=== PATIENT | male | born 1990 | race Caucasian/White ===

== ENCOUNTER 2019-07-08 23:48 | Emergency (ER) | payer MEDICARE, SELFPAY ==
[2019-07-08 23:50] VITALS: BP 117/73; PULSE 74; RESP 16; TEMP 36.4
--- NOTE | 2019-07-08 23:58 | ED.GENADUL_ITS ---
Discharge Plan Disposition Patient Disposition: HOME Condition: Stable Discharge Details Chief Complaint: Abd Prob Clinical Impression: Diarrhea Primary Care Provider: Shravan Rodriguez ED Provider: Vincenzo Norman Home Meds and New Rx's Prescriptions: New ondansetron 4 mg tablet,disintegrating 4 mg PO Q8H PRN (Reason: nausea and vomiting) Qty: 30 RF: 0 Continued acetaminophen [Tylenol] 325 MG tablet 650 mg PO PRN PRNRF: 0 metoprolol succinate 50 MG tablet extended release 24 hr 50 mg PO DAILY RF: 0 clonazepam 0.5 MG tablet 1.5 mg PO BID RF: 0 magnesium oxide 400 MG tablet 400 mg PO DAILY RF: 0 sertraline [Zoloft] 50 MG tablet 50 mg PO HS RF: 0 Discharge Instructions Instructions: Acute Diarrhea (ED) Additional Instructions: Please follow up with your primary care provider for repeat PPD testing if diarrhea doesn't resolve in a week follow up with your primary care provider if you have severe abdominal pain, high fevers or persistent vomit return to the emergency department Medical Decision Making 28 yo male comes in with loose stools for several days and nausea as well as skin rash. HE states he recently checked into [facility] as he was sober for a year then had a few drinks and wanted treatment before relapsing into alcohol abuse. While there he states they put a TB shot in his left arm some time Friday. On friday he started to have loose stools and nasuea, no severe abdominal pain, fevers, vomit. HAs soft abdomen and no distention, denies bloody stools or recent travel, no drug use. Suspect gastroenteritis. HE does have a 0.5cm area of redness that is not tender or warm to touch on left mid anterior forearm. I suspect he had a ppd placed but is outside the 72 hour window for accurate reading. HE has no cough, fevers, or other tb symptoms. I advised he needs to f/u with his pcp this week and have another ppd placed. Also advised if diarrhea continues to see pcp and return precautions given Differential Diagnosis Differential Diagnosis: ppd, gastroenteritis HPI General Mode of arrival: ambulatory . Date/Time Provider Initiated Documentation: 07/08/19 23:58 . Limitations to Documentation: no limitations . Information obtained by: patient . History of Present Illness 28 year old M presents to the emergency department with the chief complaint of diarrhea, described as moderate, and it has been constant. No relieving factors improve symptom(s), No exacerbating factors reported . Patient did receive the following treatments prior to arrival, none Related Data Home Medications Medication Instructions Recorded Confirmed acetaminophen [Tylenol] 650 mg PO PRN PRN 05/19/13 11/25/15 clonazepam 1.5 mg PO BID 05/19/13 11/25/15 magnesium oxide 400 mg PO DAILY 05/19/13 11/25/15 metoprolol succinate 50 mg PO DAILY 05/19/13 11/25/15 sertraline [Zoloft] 50 mg PO HS 05/19/13 11/25/15 ondansetron 4 mg PO Q8H PRN #30 tab 07/09/19 Previous Rx's Medication Instructions Recorded ondansetron 4 mg PO Q8H PRN #30 tab 07/09/19 Allergies Allergy/AdvReac Type Severity Reaction Status Date / Time amoxicillin [Amoxicillin] AdvReac Mild stomach Unverified 05/19/13 15:19 upset Review of Systems All systems reviewed & are unremarkable except as noted in HPI and below Constitutional Constitutional: Denies chills, Denies fever(s) and Denies weakness ENT Ears, Nose, Mouth, and Throat: Denies change in voice Cardiovascular Cardiovascular: Denies chest pain and Denies dyspnea Respiratory Respiratory: Denies cough and Denies dyspnea Gastrointestinal Gastrointestinal: Denies abdominal pain, Denies nausea and Denies vomiting Musculoskeletal Musculoskeletal: Denies joint swelling Neurologic Neurologic: Denies weakness Psychiatric Psychiatric: Denies depression PFSH Social History Smoking/Tobacco Use Status: Current every day Tobacco Type: cigarettes Alcohol Intake: former Drug use: Rarely Substance use type: marijuana Do you feel safe at home: Yes Do you feel safe in your relationship?: Yes Exam Const General: no acute distress Orientation: alert HENMT Head: normal to inspection Ears: external ears normal General nose exam: external nose normal Mouth: moist mucous membranes Eyes General: appearance normal, both eyes and all related structures Neck Neck: normal visual inspection Resp Effort & Inspection: normal respiratory effort and able to speak in complete sentences Cardio Rate: regular rate Skin General skin exam: no rashes or lesions noted Neuro General: alert and oriented x3 Extrem General: normal to inspection and normal capillary refill Psych Mental Status: mental status grossly normal
[2019-07-09] MEDS: Ondansetron O.D.T. 4 MG TABEF, 3 TABS/BTL PO (00:08)
== END 2019-07-09 00:10 | disposition home or self-care (01) ==
LOC: ER 07-09 00:19
PROVIDERS: Emergency Provider Emergency Medicine; PCP Physician Assistant
DX: R11.0 Nausea (principal); R19.7 Diarrhea, unspecified; R21 Rash and other nonspecific skin eruption
CPT/HCPCS: 99283

== ENCOUNTER 2024-06-10 11:57 | Emergency (ER) | payer MEDICARE, MEDICAID, SELFPAY ==
[2024-06-10 12:02] VITALS: BP 143/97; PULSE 90; RESP 18; TEMP 36.3; O2SAT 95
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
== END 2024-06-10 12:28 | disposition home or self-care (01) ==
LOC: ER 12:48
PROVIDERS: Emergency Provider Emergency Medicine; PCP Physician Assistant
DX: F32.A Depression, unspecified (principal); R45.851 Suicidal ideations; F10.90 Alcohol use, unspecified, uncomplicated
CPT/HCPCS: 99285; 99283